=== PATIENT | female | born 1950 | race Caucasian/White ===

== ENCOUNTER 2016-10-18 06:15 | Day surgery (SDC) | payer MEDICARE ==
--- NOTE | 2016-10-13 16:36 | HP ---
DATE: 10/18/16 ADMISSION DIAGNOSIS: 1. DYSPHAGIA LIQUIDS AND SOLIDS. ANTICIPATED PROCEDURE: 1. EGD with possible dilatation. PAST MEDICAL HISTORY: ALLERGIES: CODEINE AND PENICILLIN. CURRENT MEDICATIONS: Multiple. SURGERIES: Shoulder, neck, breast reduction. SOCIAL HISTORY: Negative. FAMILY HISTORY: Negative. REVIEW OF SYSTEMS: Diabetes. PHYSICAL EXAMINATION: Vital signs normal. CHEST: Clear. COR: Regular. NECK: No adenopathy. IMPRESSION: 1. DYSPHAGIA. PLAN: EGD.
[2016-10-18] MEDS ORDERED: Sodium Chloride 0.9% 1000 ML 1,000 ML ONE (06:40)
[2016-10-18] MEDS ORDERED: Sodium Chloride 0.9% 1000 ML 1,000 ML IV SCH (06:45)
[2016-10-18] MEDS ORDERED: DEMEROL 50 MG IJ ONE ×2 (08:00)
[2016-10-18] MEDS ORDERED: VERSED 5 MG/5 ML IV ONE (08:00)
--- NOTE | 2016-10-18 12:28 | OP ---
SURGERY DATE/TIME: 10/18/2016 0950 PREOPERATIVE DIAGNOSIS: Dysphagia. POSTOPERATIVE DIAGNOSIS: Esophageal stricture. PROCEDURE: EGD with Rivera dilatation size 40 to 48. SURGEON: Silvio Mtz M.D. ANESTHESIA: COMPLICATIONS: None. CONDITION: Stable. INDICATION: A 66 year-old with difficulty swallowing. DESCRIPTION OF PROCEDURE: Taken to endoscopy. Left lateral decubitus position. After suitable sedation obtained the scope was introduced. The scope advanced. There was a stricture sized 40 at the gastroesophageal junction. There were three striae radiating areas of esophagitis coming out of the gastroesophageal junction. It had almost like a stellate-like appearance. Fundus, body, antrum satisfactory. Pylorus satisfactory. Duodenal bulb satisfactory. Second portion satisfactory. Scope withdrawn and looped upon itself. No hiatal hernia. The scope withdrawn. Rivera 40, 42, 44, 46 and 48 were placed. The scope reintroduced and had been successfully dilated with no suggestion of issue.
[2016-10-18 15:32] VITALS: O2SAT 96
[2016-10-18 15:45] VITALS: BP 131/60; PULSE 86
== END 2016-10-18 11:30 | disposition home or self-care (01) ==
LOC: SDC 06:15 → EDSTATUS 06:18 → SDC 11:30
PROVIDERS: ATTEND Surgery
PROC: 0D798ZZ Dilation of Duodenum, Via Natural or Artificial Opening Endoscopic (ICD-10-PCS; principal; 2016-10-18)
PROC: 0D768ZZ Dilation of Stomach, Via Natural or Artificial Opening Endoscopic (ICD-10-PCS; 2016-10-18)
DX: K22.2 Esophageal obstruction (principal); R13.10 Dysphagia, unspecified
CPT/HCPCS: 82962; C1726; J2175; J2250

== ENCOUNTER 2020-10-05 12:46 | Emergency (ER) | payer MEDICARE, OTHER ==
[2020-10-05] MEDS ORDERED: Sodium Chloride 0.9% 500 ML 500 ML IV ONE ×2 (13:14→13:18)
[2020-10-05 13:32] LABS: Absolute Neutrophil Ct (ANC) 5.38 (1.4-6.9); BASOPHIL % 0.3 % (0.0-0.4); Basophil (Absolute #) 0.02 (0-0.4); Eosinophil % 1.3 % (0.00-5.0); Eosinophil (Absolute #) 0.09 (0-0.5); Hematocrit 29.3 % (35-47); Hemoglobin 8.9 gm/dl (12.0-16.0); Lymphocyte (Absolute #) 0.99 (1.0-4.6); Lymphocytes % 13.9 % (24.0-44.0); Mean Cell Volume 78.3 fl (78-100); Mean Corpuscular Hemoglobin 23.8 pg (26-32); Mean Corpuscular Hgb Concent. 30.4 g/dl (32-36); Mean Platelet Volume 9.1 fl (7.5-11.0); Monocyte (Absolute #) 0.66 (0.0-1.3); Monocytes % 9.2 % (0.0-12.0); Neutrophil % 75.3 % (36.0-66.0); Platelet Count 564 K/mm3 (150-450); Red Blood Count 3.74 M/mm3 (4.1-5.4); White Blood Count 7.1 K/mm3 (4.0-10.5)
[2020-10-05 13:39] LABS: INR 1.13 (0.8-3.0); PROTIME 12.8 SECONDS (9.95-12.35)
[2020-10-05 13:43] LABS: ALBUMIN 3.1 g/dL (3.5-5.0); ANION GAP 14.5 MEQ/L (5-15); BILIRUBIN,TOTAL 0.3 mg/dL (0.2-1.3); Calcium 9.8 mg/dL (8.4-10.2); Creatinine 1 2.96 mg/dL (0.52-1.04); EST GLOMERULAR FILTRATION RATE 16.7 ML/MIN; Potassium 4.4 mmol/L (3.5-5.1); Total Protein 6.9 g/dL (6.3-8.2)
--- NOTE | 2020-10-05 13:48 | ERPHSYRPT ---
- History of Present Illness Time Seen by Provider: 10/05/20 13:06 Historian: patient Exam Limitations: no limitations Patient Subjective Stated Complaint: pt alert,skin w/d/p, resp easy, face mask in place,abd round dsitended,tender to touch Triage Nursing Assessment: pt here for abd pain for 7-8 months now, off and on, but bloated feeling last 3 weeks, some nausea,and vomiting. loose stool last night, was able to eat today Physician History: 70 years old female with a history of hypertension, diabetes mellitus, hy pothyroidism presented in the ER with chief complaint of abdominal pain and distention. Patient reports she is having abdominal pain off and on for the last 7-8 months. Lately she is having more pain in the upper abdomen with some distention and occasionally nausea and an episode of vomiting. She also having loose stools since yesterday. Patient feels fatigued and tired and has lost multiple pounds. Does have history of esophageal strictures and is scheduled to have esophageal dilatation done soon. Denies any liver issues. No chest pain palpitations or shortness of breath. Denies any fever chills or urinary symptoms. Patient blood pressure is on the lower side, was evaluated couple of days ago at endocrinology office and it was low and was decreased her blood pressure medication. Currently in upper 80s but patient denies any symptoms associated with low blood pressure. Timing/Duration: week(s), intermittent, gradual onset, worse Activities at Onset: rest Quality: cramping, dullness Abdominal Pain Onset Location: RUQ, LUQ, epigastric, periumbilical Pain Radiation: no radiation Severity of Pain-Max: moderate Severity of Pain-Current: mild Modifying Factors: Improves With: nothing Associated Symptoms: fatigue, nausea, vomiting, weakness, No shortness of breath Previous symptoms: same symptoms as today Allergies/Adverse Reactions: codeine Allergy (Unknown, Verified 10/05/20 12:51) Nausea Penicillins Allergy (Unknown, Verified 10/05/20 12:51) Swelling bruising Home Medications: Hydralazine HCl 50 mg PO BID 10/11/16 [History] Simvastatin 40 mg [Zocor 40 mg] 40 mg PO HS 10/11/16 [History] Aspirin EC 81 mg [Ecotrin 81 mg] 81 mg PO DAILY 09/16/20 [History] Hydrochlorothiazide 25 mg [hydroDIURIL 25 MG] 1 tab PO DAILY 09/16/20 [History] Insulin Aspart [Novolog] 6 units SQ UD 09/16/20 [History] Insulin Glargine,Hum.rec.anlog [Lantus] 4 unit SQ QHS 09/16/20 [History] Levothyroxine Sodium 88 Mcg [Synthroid 88 Mcg] 1 tab PO DAILY 09/16/20 [Hi story] Lisinopril 20 mg [Zestril 20 MG] 20 mg PO DAILY 09/16/20 [History] Hx Influenza Vaccination/Date Given: Yes Hx Pneumococcal Vaccination/Date Given: Yes Immunizations Up to Date: Yes Travel Risk - International Travel Have you traveled outside of the country in past 3 weeks: No - Coronavirus Screening Are you exhibiting any of the following symptoms?: No Close contact with a COVID-19 positive Pt in past 14-21 Days: No - Vaccine Status Have you recieved a Covid-19 vaccination: No - Review of Systems Constitutional: Fatigue, Weakness Eyes: No Symptoms Ears, Nose, & Throat: No Symptoms Respiratory: No Symptoms Cardiac: No Symptoms Abdominal/Gastrointestinal: Abdominal Pain, Nausea, Vomiting Genitourinary Symptoms: No Symptoms Musculoskeletal: No Symptoms Skin: No Symptoms Neurological: No Symptoms Psychological: No Symptoms Endocrine: No Symptoms Hematologic/Lymphatic: No Symptoms Immunological/Allergic: No Symptoms - Past Medical History Pertinent Past Medical History: Yes Neurological History: No Pertinent History ENT History: No Pertinent History Cardiac History: High Cholesterol, Hypertension Respiratory History: No Pertinent History, Other Endocrine Medical History: Diabetes Type II, Hypothyroidism Musculoskeletal History: Arthritis GI Medical History: Other History: No Pertinent History Psycho-Social History: No Pertinent History Female Reproductive Disorders: No Pertinent History Other Medical History: Former smoker. Hx of abdominal pain. - Past Surgical History Past Surgical History: Yes Neuro Surgical History: No Pertinent History Cardiac: No Pertinent History Respiratory: No Pertinent History Gastrointestinal: No Pertinent History Genitourinary: No Pertinent History Musculoskeletal: Orthopedic Surgery Female Surgical History: No Pertinent History Other Surgical History: Hx of Breast reduction, fatty tissue removed from neck, right heel spur removed, Chalazion removed from both eye lids. - Social History Smoking Status: Former smoker Exposure to second hand smoke: No Drug Use: none Patient Lives Alone: No - Female History Hx Last Menstrual Period: post Hx Now: No - Nursing Vital Signs Nursing Vital Signs: Initial Vital Signs Temperature 97.6 F 10/05/20 12:55 Pulse Rate 120 H 10/05/20 12:55 Respiratory Rate 18 10/05/20 12:55 Blood Pressure 90/67 10/05/20 12:55 O2 Sat by Pulse Oximetry 98 10/05/20 12:55 Pain Scale Pain Intensity 4 - Physical Exam General Appearance: no apparent distress, alert Eye Exam: PERRL/EOMI, eyes nml inspection Ears, Nose, Throat Exam: normal ENT inspection, pharynx normal Neck Exam: normal inspection, supple, full range of motion Respiratory Exam: normal breath sounds, lungs clear Cardiovascular Exam: normal heart sounds, tachycardia Gastrointestinal/Abdomen Exam: soft, tenderness (Generalized), distention, other (Positive fluid thrill) Back Exam: normal inspection, normal range of motion Extremity Exam: normal inspection, normal range of motion Neurologic Exam: alert, oriented x 3, cooperative, hosiery operator II-XII nml as tested Skin Exam: normal color SpO2 Interpretation: normal SpO2: 98 O2 Delivery: Room Air Ordered Tests: Active Orders 24 hr Category Date Time Status IV Insertion STAT Care 10/05/20 13:12 Active NPO (ED) STAT Care 10/05/20 13:12 Active ABDOMEN AND PELVIS W/0 CONTRAS [CT] Stat Exams 10/05/20 13:13 Completed CBC W DIFF Stat Lab 10/05/20 13:30 Completed CMP Stat Lab 10/05/20 13:30 Completed LIPASE Stat Lab 10/05/20 13:30 Completed Lactic Acid Stat Lab 10/05/20 13:12 Completed PROTIME WITH INR Stat Lab 10/05/20 13:30 Completed UA W/RFX UR CULTURE Stat Lab 10/05/20 13:15 Completed Medication Summary Generic Name Dose Route Start Last Admin Trade Name Freq PRN Reason Stop Dose Admin Metronidazole 500 mg in 100 mls @ 200 mls/hr 10/05/20 15:14 Flagyl 500 Mg Ivpb IV 10/05/20 15:43 STAT STA Ceftriaxone Sodium/Dextrose 1 g in 50 mls @ 100 mls/hr 10/05/20 15:14 Rocephin 1 Gm-D5w 50 Ml Bag IV 10/05/20 15:43 STAT STA Discontinued Medications Generic Name Dose Route Start Last Admin Trade Name Harinder PRN Reason Stop Dose Admin Fentanyl Citrate 25 mcg 10/05/20 13:51 10/05/20 13:56 Sublimaze 100 Mcg/2 Ml IV 10/05/20 13:52 25 mcg STAT ONE Administration Fentanyl Citrate Confirm 10/05/20 13:54 Sublimaze 100 Mcg/2 Ml Administered 10/05/20 13:55 Dose 100 mcg .ROUTE .STK-MED ONE Sodium Chloride 500 mls @ 500 mls/hr 10/05/20 13:14 10/05/20 14:28 Sodium Chloride 0.9% 500 Ml IV 10/05/20 14:13 Infused .Q1H ONE Infusion Sodium Chloride Confirm 10/05/20 13:18 Sodium Chloride 0.9% 500 Ml Administered 10/05/20 13:19 Dose 500 mls @ ud IV .STK-MED ONE Sodium Chloride 1,000 mls @ 999 mls/hr 10/05/20 13:52 10/05/20 15:01 Sodium Chloride 0.9% 1000 Ml IV 10/05/20 14:52 Infused .Q1H1M STA Infusion Sodium Chloride Confirm 10/05/20 13:55 Sodium Chloride 0.9% 1000 Ml Administered 10/05/20 13:56 Dose 1,000 mls @ ud .ROUTE .STK-MED ONE Ceftriaxone Sodium/Dextrose Confirm 10/05/20 15:18 Rocephin 1 Gm-D5w 50 Ml Bag Administered 10/05/20 15:19 Dose 1 g in 50 mls @ ud IV .STK-MED ONE Metronidazole Confirm 10/05/20 15:18 Flagyl 500 Mg Ivpb Administered 10/05/20 15:19 Dose 500 mg in 100 mls @ ud IV .STK-MED ONE Ondansetron HCl 4 mg 10/05/20 13:51 10/05/20 13:57 Zofran 4 Mg/2 Ml Vial IV 10/05/20 13:52 4 mg STAT ONE Administration Ondansetron HCl Confirm 10/05/20 13:54 Zofran 4 Mg/2 Ml Vial Administered 10/05/20 13:55 Dose 4 mg .ROUTE .STK-MED ONE Lab/Rad Data: Laboratory Result Diagrams 10/05/20 13:30 10/05/20 13:30 Laboratory Results 10/05/20 10/05/20 10/05/20 Range/Units 13:30 13:30 13:30 WBC 7.1 (4.0-10.5) K/mm3 RBC 3.74 L (4.1-5.4) M/mm3 Hgb 8.9 L (12.0-16.0) gm/dl Hct 29.3 L (35-47) % MCV 78.3 (78-100) fl MCH 23.8 L (26-32) pg MCHC 30.4 L (32-36) g/dl RDW 17.0 H (11.5-14.0) % Plt Count 564 H (150-450) K/mm3 MPV 9.1 (7.5-11.0) fl Gran % 75.3 H (36.0-66.0) % Eos # (Auto) 0.09 (0-0.5) Absolute Lymphs (auto) 0.99 L (1.0-4.6) Absolute Monos (auto) 0.66 (0.0-1.3) Lymphocytes % 13.9 L (24.0-44.0) % Monocytes % 9.2 (0.0-12.0) % Eosinophils % 1.3 (0.00-5.0) % Basophils % 0.3 (0.0-0.4) % Absolute Granulocytes 5.38 (1.4-6.9) Basophils # 0.02 (0-0.4) PT 12.8 H (9.95-12.35) SECONDS INR 1.13 (0.8-3.0) Sodium 135 L (137-145) mmol/L Potassium 4.4 (3.5-5.1) mmol/L Chloride 103 (98-107) mmol/L Carbon Dioxide 22 (22-30) mmol/L Anion Gap 14.5 (5-15) MEQ/L BUN 43 H (7-17) mg/dL Creatinine 2.96 H (0.52-1.04) mg/dL Estimated GFR 16.7 ML/MIN Glucose 165 H (74-106) mg/dL Lactic Acid (0.4-2.0) Calcium 9.8 (8.4-10.2) mg/dL Total Bilirubin 0.30 (0.2-1.3) mg/dL AST 26 (14-36) U/L ALT 15 (0-35) U/L Alkaline Phosphatase 89 (38-126) U/L Serum Total Protein 6.9 (6.3-8.2) g/dL Albumin 3.1 L (3.5-5.0) g/dL Lipase 84 (23-300) U/L Urine Color (YELLOW) Urine Appearance (CLEAR) Urine pH (5-6) Ur Specific [place] (1.005-1.025) Urine Protein (Negative) Urine Ketones (NEGATIVE) Urine Blood (0-5) Curt/ul Urine Nitrite (NEGATIVE) Urine Bilirubin (NEGATIVE) Urine Urobilinogen (0-1) mg/dL Ur Leukocyte Esterase (NEGATIVE) Urine WBC (Auto) (0-5) /HPF Urine RBC (Auto) (0-2) /HPF U Hyaline Cast (Auto) (0-2) /LPF U Epithel Cells (Auto) (FEW) /HPF Urine Bacteria (Auto) (NEGATIVE) /HPF Calcium Oxalate Crystal (NEGATIVE) /HPF Urine Mucus (Auto) (NEGATIVE) /HPF Urine Culture Reflexed (NO) Urine Glucose (NEGATIVE) mg/dL 10/05/20 10/05/20 Range/Units 13:15 13:12 WBC (4.0-10.5) K/mm3 RBC (4.1-5.4) M/mm3 Hgb (12.0-16.0) gm/dl Hct (35-47) % MCV (78-100) fl MCH (26-32) pg MCHC (32-36) g/dl RDW (11.5-14.0) % Plt Count (150-450) K/mm3 MPV (7.5-11.0) fl Gran % (36.0-66.0) % Eos # (Auto) (0-0.5) Absolute Lymphs (auto) (1.0-4.6) Absolute Monos (auto) (0.0-1.3) Lymphocytes % (24.0-44.0) % Monocytes % (0.0-12.0) % Eosinophils % (0.00-5.0) % Basophils % (0.0-0.4) % Absolute Granulocytes (1.4-6.9) Basophils # (0-0.4) PT (9.95-12.35) SECONDS INR (0.8-3.0) Sodium (137-145) mmol/L Potassium (3.5-5.1) mmol/L Chloride (98-107) mmol/L Carbon Dioxide (22-30) mmol/L Anion Gap (5-15) MEQ/L BUN (7-17) mg/dL Creatinine (0.52-1.04) mg/dL Estimated GFR ML/MIN Glucose (74-106) mg/dL Lactic Acid 4.7 H (0.4-2.0) Calcium (8.4-10.2) mg/dL Total Bilirubin (0.2-1.3) mg/dL AST (14-36) U/L ALT (0-35) U/L Alkaline Phosphatase (38-126) U/L Serum Total Protein (6.3-8.2) g/dL Albumin (3.5-5.0) g/dL Lipase (23-300) U/L Urine Color YELLOW (YELLOW) Urine Appearance SLIGHTLY CLOUDY (CLEAR) Urine pH 5.0 (5-6) Ur Specific [place] 1.016 (1.005-1.025) Urine Protein 30 (Negative) Urine Ketones NEGATIVE (NEGATIVE) Urine Blood NEGATIVE (0-5) Curt/ul Urine Nitrite NEGATIVE (NEGATIVE) Urine Bilirubin NEGATIVE (NEGATIVE) Urine Urobilinogen NEGATIVE (0-1) mg/dL Ur Leukocyte Esterase NEGATIVE (NEGATIVE) Urine WBC (Auto) 0-2 (0-5) /HPF Urine RBC (Auto) NONE (0-2) /HPF U Hyaline Cast (Auto) 6-10 (0-2) /LPF U Epithel Cells (Auto) NONE (FEW) /HPF Urine Bacteria (Auto) NONE (NEGATIVE) /HPF Calcium Oxalate Crystal 3-5 (NEGATIVE) /HPF Urine Mucus (Auto) SLIGHT (NEGATIVE) /HPF Urine Culture Reflexed NO (NO) Urine Glucose NEGATIVE (NEGATIVE) mg/dL - Progress Progress: pain not gone completely, re-examined Progress Note: 10/05/20 15:19 70 years old is evaluated for abdominal distention and pain with progressive worsening. Her blood pressure was in upper 80s, given fluid bolus and is improved to low 100s. Patient tachycardia also improved. Work-up showed normal white count, hemoglobin of 8.9 which is stable from her previous comparison from [facility] which was 8.2. She has worsening of renal function with a creatinine of 2.9 with a baseline around 1.5. Liver enzymes are normal and no elevated PT INR. She has a lactate of 4.[address] showed ascites in the abdomen and pelvis. She is given a dose of antibiotics for SBP as patient has renal failure which goes with SBP. I believe patient needs gastroenterology services for further evaluation as it can be detrimental with her worsening renal functions going towards hepatorenal syndrome. I have discussed with Dr. Dougherty at [facility] and patient is accepted for transfer. Plan discussed with patient and family who understand and agree with it. Discussed with Dr.: Other (Dr. Dougherty [facility]) Counseled pt/family regarding: lab results, diagnosis, rad results - Departure Departure Disposition: Transfer Clinical Impression: Acute renal failure Qualifiers: Acute renal failure type: unspecified Qualified Code(s): N17.9 - Acute kidney failure, unspecified Sepsis Qualifiers: Sepsis type: sepsis due to unspecified organism Sepsis acute organ dysfunction status: unspecified Qualified Code(s): A41.9 - Sepsis, unspecified organism Ascites Qualifiers: Ascites type: other type Qualified Code(s): R18.8 - Other ascites Condition: Stable Critical Care Time: Yes Critical Care Time(excluding separately billable procedures): Critical 30-74 mins Referrals: ESSENCE RUSH MD [Primary Care Provider] -
[2020-10-05] MEDS ORDERED: SUBLIMAZE 100 MCG/2 ML IV ONE (13:51)
[2020-10-05] MEDS ORDERED: Zofran 4 MG/2 ML VIAL IV ONE (13:51)
[2020-10-05] MEDS ORDERED: Sodium Chloride 0.9% 1000 ML 1,000 ML IV STA (13:52)
[2020-10-05 13:54] LABS: Appearance SLIGHTLY CLOUDY (CLEAR); Bilirubin NEGATIVE (NEGATIVE); Blood NEGATIVE Ery/ul (0-5); Glucose NEGATIVE (NEGATIVE); Ketones NEGATIVE (NEGATIVE); Leukocyte Esterase NEGATIVE (NEGATIVE); Mucus SLIGHT /HPF (NEGATIVE); Nitrite NEGATIVE (NEGATIVE); Protein,Urine Dip 30 (Negative); Specific Gravity 1.016 (1.005-1.025); Urobilinogen NEGATIVE mg/dL (0-1); WBC 0-2 /HPF (0-5)
[2020-10-05] MEDS ORDERED: Zofran 4 MG/2 ML VIAL ONE (13:54)
[2020-10-05] MEDS ORDERED: SUBLIMAZE 100 MCG/2 ML ONE (13:54)
[2020-10-05] MEDS ORDERED: Sodium Chloride 0.9% 1000 ML 1,000 ML ONE ×2 (13:55→15:29)
--- NOTE | 2020-10-05 14:44 | XRAY ---
Indication: Abdomen/pelvic pain 5 months. Distention 3 weeks. Multiple contiguous axial images obtained through the abdomen and pelvis without contrast. Comparison: None Lung bases demonstrate scattered fibrosis/scarring and tiny left effusion. Heart is not enlarged. Moderate-sized hiatal hernia. Large abdomen/pelvic ascites. Noncontrasted stomach and bowel loops appear nonobstructed. No free air. Small cirrhotic appearing liver. Tiny splenic calcification granulomas. Remaining gallbladder, pancreas, adrenal glands, kidneys, ureters, bladder, and uterus appear unremarkable for noncontrast exam. Moderate scattered vascular calcifications. No AAA. Osseous structures intact with mild degenerative changes throughout the thoracolumbar spine. Impression: 1. Large abdominal and pelvic ascites. 2. Incidental moderate sized hiatal hernia, cirrhotic appearing liver, scattered arteriosclerotic disease, and chronic bony findings.
[2020-10-05] MEDS ORDERED: FLAGYL 500 MG IVPB 500 MG/100 ML BAG IV STA (15:14)
[2020-10-05] MEDS ORDERED: ROCEPHIN 1 Gm-D5w 50 ml Bag** 1 G/50 ML IVPB IV STA (15:14)
[2020-10-05 15:17] VITALS: BP 100/61; PULSE 79
[2020-10-05] MEDS ORDERED: ROCEPHIN 1 Gm-D5w 50 ml Bag** 1 G/50 ML IVPB IV ONE (15:18)
[2020-10-05] MEDS ORDERED: FLAGYL 500 MG IVPB 500 MG/100 ML BAG IV ONE (15:18)
[2020-10-05] MEDS ORDERED: Sodium Chloride 0.9% 250 ML 250 ML IV SCH (15:30)
[2020-10-05] MEDS ORDERED: Sodium Chloride 0.9% 1000 ML 1,000 ML IV SCH (15:30)
[2020-10-05 15:46] VITALS: O2SAT 100
== END 2020-10-05 16:00 | disposition short-term general hospital (02) ==
LOC: ED 12:46
DX: N17.9 Acute kidney failure, unspecified (principal); A41.9 Sepsis, unspecified organism; R18.8 Other ascites; Z79.899 Other long term (current) drug therapy; E11.9 Type 2 diabetes mellitus without complications; E03.9 Hypothyroidism, unspecified; E78.00 Pure hypercholesterolemia, unspecified; Z79.4 Long term (current) use of insulin; I10 Essential (primary) hypertension
CPT/HCPCS: 36000; 36415; 74176; 80053; 81001; 83605; 83690; 85025; 85610; 93041; 94760; 96360; 96365; 96367; 96374; 96375; 99285; 99291; J0696; J2405; J3010

== ENCOUNTER 2020-10-13 10:51 | Day surgery (SDC) | payer MEDICARE, OTHER ==
--- NOTE | 2020-09-30 09:51 | HP ---
DATE OF SURGERY: 10/13/2020 HISTORY OF PRESENT ILLNESS: The patient presents with complaints of anemia. Her last hemoglobin was 8.2. She has been getting some iron infusions that do not seem to be helping. She has also been reporting some diffuse abdominal pain. She states that it is constant. She has a bowel movement every day. She denies rectal bleeding or hematemesis. Last colonoscopy was five years ago. She was unsure of the result but thinks it was normal. She reports EGD with dilatation in 2017. PAST MEDICAL HISTORY: Hyperlipidemia, hypertension, hypothyroidism, diabetes. PAST SURGICAL HISTORY: Lipoma removal. Breast reduction. Cataract left and right eye. ALLERGIES: PENICILLIN. CODEINE. MEDICATIONS: Simvastatin, aspirin, lisinopril, hydrochlorothiazide, hydralazine, levothyroxine, potassium, NovoLog, Lantus, evening primrose oil. FAMILY HISTORY: Stroke. SOCIAL HISTORY: Former smoker. Former alcohol. REVIEW OF SYSTEMS: CONSTITUTIONAL: Denies fever or chills. CHEST: Denies shortness of breath. CVS: Denies chest pain. ABDOMEN: Reports abdominal pain. Denies nausea, vomiting or rectal bleeding. INTEGUMENTARY: Negative. PHYSICAL EXAMINATION: GENERAL: No acute distress. CHEST: Nonlabored. No shortness of breath. CVS: Regular rate and rhythm. ABDOMEN: Soft, nontender to palpation. EXTREMITIES: No edema. NEUROLOGIC: Alert. PSYCHIATRIC: Appropriate. IMPRESSION: Anemia and abdominal pain. PLAN: EGD with possible dilatation and colonoscopy with Dr. Silvio Mtz. As dictated by Ursula Pena NP.
[2020-10-13] MEDS ORDERED: Lactated Ringers 1,000 ML IV SCH (11:30)
[2020-10-13] MEDS: D50W 50ML Vial IV PRN ×2 (12:50→13:15)
[2020-10-13] MEDS ORDERED: DIPRIVAN 200 MG/20 ML IV ONE ×2 (13:37→14:05)
--- NOTE | 2020-10-13 15:06 | OP ---
SURGERY DATE/TIME: 10/13/2020 7011 PREOPERATIVE DIAGNOSIS: Anemia, abdominal pain, dysphagia. POSTOPERATIVE DIAGNOSES: 1) The patient does have an esophageal stricture size 20. She does have grade B/D gastroesophageal reflux disease. She has minimal to no hiatal hernia. 2) The patient's colonoscopy was limited to 20 cm. It could not be passed further. It was extrinsically obstructed at this location. PROCEDURES: 1) EGD. 2) Colonoscopy. SURGEON: Silvio Mtz M.D. ANESTHESIA: MAC. COMPLICATIONS: None. CONDITION: Stable. INDICATION: A patient with anemia presents for upper and lower examination. She also has dysphagia and abdominal pain. DESCRIPTION OF PROCEDURE: Pharyngoesophageal junction is cannulated. Esophagus normal down to gastroesophageal junction. There was a size 20 stricture. It was moderately irrigated but appeared benign. No samples were taken. There was nothing exophytic. Fundus, body and antrum normal. Pylorus normal. Duodenal bulb normal. Second portion normal. The scope was withdrawn looped upon itself. No hiatal hernia. The stricture was visible and present. Scope withdrawn. The patient basically has a new diagnosis of abdominal ascites. She had paracentesis. The fluid is already nearly totally come back within 48 hours. I am concerned about the cirrhosis, liver failure, and possibly even early variceal bleeding. At this time I did not think it was prudent to balloon dilate this stricture. Anal digital examination satisfactory. Scope introduced. Scope only advanced to 20 cm. The lumen was visible but seemed to be strictured down. There was nothing intrinsic visible but extrinsically it seemed like it was being pressed together and the scope could not be gently or moderately gently advanced through here. Barium enema has been ordered today. IMPRESSION: 1) The patient had a 50 pound weight loss. 2) The patient has a severe new ascites. 3) The patient has significant esophageal stricture size 20. 4) The patient has extrinsic obstruction to retrograde colonoscopy at 20 cm. PLAN: Barium enema is pending. The patient will present back to our office.
--- NOTE | 2020-10-13 15:42 | XRAY ---
Indication: Incomplete colonoscopy. No biopsies. Preliminary group practice pediatrician abdomen appears nonacute and nonobstructed with extensive scattered vascular calcifications, osteopenia, and lower lumbar degenerative spondylosis. Following insertion of barium enema catheter, balloon tip was insufflated. Barium infusion and air insufflation was performed under gravity and fluoroscopic control. Multiple digital spot and overhead radiographs obtained. There is adequate distention and good opacification of the entire colon. Sigmoid appears smaller in caliber with respect to the remaining colon and is of uncertain clinical significance. Redundant splenic and hepatic flexures. Minimal sigmoid diverticulosis. No focal stricture, and annular constricting lesions, or mucosal abnormality. Lateral sacrum negative for presacral soft tissue mass. No reflux of contrast into the terminal ileum. Post evacuation overhead radiograph unremarkable. Impression: Minimal sigmoid diverticulosis and redundant colon as detailed. Remaining double contrast barium enema exam is negative. Approximately 2 minutes fluoroscopy used.
[2020-10-13 16:30] VITALS: O2SAT 100
[2020-10-13 16:32] VITALS: BP 137/74; PULSE 76
== END 2020-10-13 16:10 | disposition home or self-care (01) ==
LOC: SDC 10:51
PROVIDERS: ATTEND Surgery
DX: K22.2 Esophageal obstruction (principal); R13.10 Dysphagia, unspecified; D64.9 Anemia, unspecified; R10.9 Unspecified abdominal pain; K21.9 Gastro-esophageal reflux disease without esophagitis; R18.8 Other ascites; R63.4 Abnormal weight loss; E11.9 Type 2 diabetes mellitus without complications; E78.5 Hyperlipidemia, unspecified; I10 Essential (primary) hypertension; E03.9 Hypothyroidism, unspecified; Z79.899 Other long term (current) drug therapy
CPT/HCPCS: 74280; 82947; 99100; J2704